=== PATIENT | female | born 1980 | race Asian ===

== ENCOUNTER 2021-01-28 17:29 | Emergency (ER) | payer BC, SELFPAY ==
[2021-01-28 17:31] VITALS: BP 114/75; PULSE 77; RESP 18; TEMP 36.1; O2SAT 95; BMI 23.0
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
--- NOTE | 2021-01-28 17:37 | EKG12_ITS ---
Test Reason : A/A Blood Pressure : / mmHG Vent. Rate : 074 BPM Atrial Rate : 074 BPM P-R Int : 184 ms QRS Dur : 088 ms QT Int : 410 ms P-R-T Axes : 071 083 047 degrees QTc Int : 455 ms Normal sinus rhythm Normal ECG Confirmed by ANDREA GILMORE, EMA ([id number]), technical editor ZANDRA REYNA ([id number]) on 01/29/2021 9:24:20 AM Referred By: DEBBI Confirmed By:EMA MENDEZ MD
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
--- NOTE | 2021-01-28 17:42 | ED.RN ---
Pt. has contusion with small laceration to forehead. glued area. RLE forearm bruising. C/O's of lower abdominal pain.
[2021-01-28 17:56] LABS: Absolute Lymphocyte Count 2.46 X10^3/uL (0.83-4.51); Absolute Neutrophil Count 5.7 X10^3/uL (2.0-7.7); Basophil# 0.03 X10^3/uL; Basophil% 0.3 % (0-1); Eosinophil# 0.05 X10^3/uL; Eosinophils% 0.6 % (0-5); Hematocrit 43.1 % (37-47); Hemoglobin 14.8 g/dL (12.0-15.0); Lymphocyte # 2.46 X10^3/ul (0.83-4.51); Lymphocyte % 28.4 % (19-41); Mean Corp Hgb Conc 34.3 g/dL (32-36); Mean Corpuscular Hgb 31.2 pg (27.0-32.0); Mean Corpuscular Volume 90.7 fL (81-99); Monocyte# 0.44 X10^3/uL; Monocyte% 5.1 % (0-10); NRBC Flagged by Analyzer 0 % (0-5); Neutrophil # 5.66 X10^3/uL (2.7-7.7); Neutrophil % 65.4 % (47-70); Platelet Count 226 K/mm3 (150-450); RBC Distribution Width CV 11.7 % (11.6-14.6); RBC Distribution Width SD 38.6 fl (35.1-43.9); Red Blood Count 4.75 M/mm3 (4.2-5.4); White Blood Count 8.7 K/mm3 (4.4-11.0)
--- NOTE | 2021-01-28 18:02 | NURSING ---
NO OLD EKGS
[2021-01-28] MEDS: 0.9% Normal Saline 1,000 ML 1000 ML IV (18:03)
[2021-01-28 18:06] LABS: International Normalized Ratio 1.1; Partial Thromboplast Time 26.8 Seconds (24.1-36.2); Prothrombin Time (Protime)PT. 13.4 SECONDS (11.7-14.9)
[2021-01-28] MEDS: Diphth,Pertuss(Acell),Tet Vac 0.5 ML Vial IM (18:19)
--- NOTE | 2021-01-28 18:22 | RAD_ITS ---
EXAM: XR RIGHT ANKLE COMPLETE, 3 OR MORE VIEWS : 1980 CLINICAL INDICATION: injury TECHNIQUE: Frontal, lateral and oblique views of the right ankle. This report was created using [employer] report generation technology. COMPARISON: None. FINDINGS: BONES/JOINTS: Unremarkable. No acute fracture. No subluxation. Normal alignment. Preservation of the joint space. No sclerotic or destructive changes observed. SOFT TISSUES: Unremarkable. No soft tissue swelling or gas. No radiopaque foreign body. RAD/Ankle min 3 Views IMPRESSION: Negative right ankle x-rays. at 1917 Reported and signed by: Home Willett MD Electronically Signed: Home Willett MD at 19:16 EDT Tel , Service support ,
[2021-01-28 18:32] LABS: Alcohol, Blood (Medical)-Serum < 3.0 mg/dL
[2021-01-28 18:37] LABS: Internal QC Validated? YES +Cl - CLEAR BKGD; Pregnancy, Serum, hCG Quali. NEGATIVE Negative
[2021-01-28 18:39] LABS: AST(SGOT) 22 U/L (15-37); Alanine Aminotransfer ALT/SGPT 20 U/L (13-56); Albumin, Serum 4.1 g/dL (3.2-5.0); Alkaline Phosphatase 73 U/L (45-117); Anion Gap 8 (5-15); BUN 14 mg/dL (7-18); BUN/Creat Ratio 20.1 RATIO (10-20); Bilirubin, Direct 0.16 mg/dL (0.00-0.30); Calcium,Total 9.2 mg/dL (8.5-10.1); Chloride 106 mmol/L (98-107); EST Glomerular Filtration Rate 99 mL/min (>60); Est Glom Filt Rate - Afr Amer 120 mL/min (>60); Estimated Creatinine Clearance 84.49 ml/min; Globulin 3.7 g/dL (2.2-4.2); Glucose 125 mg/dL (74-106); Lactic Acid 0.8 mmol/L (0.4-1.9); Lipase 155 U/L (73-393); Potassium 3.2 mmol/L (3.5-5.1); Protein, Total 7.8 g/dL (6.4-8.2); Sodium Level 138 mmol/L (136-145); Troponin-I HS 4 pg/mL (3.0-54.0)
[2021-01-28 18:43] VITALS: BP 110/77; PULSE 57; RESP 18; O2SAT 100
[2021-01-28] MEDS: 0.9% Normal Saline 1,000 ML 150 ML IV (18:47)
[2021-01-28 20:03] VITALS: BP 104/67; PULSE 78; RESP 15
[2021-01-28 20:12] LABS: Bacteria 0 SEEN /hpf (None Seen); Mucous, Urine 0 SEEN /hpf (<or=2+)
[2021-01-28 20:14] LABS: Color, Urine Yellow (Yellow); Glucose, Dipstick Normal (Normal); Ketone-Dipstick 50 mg/dl (Negative); Leukocyte Esterase-Dipstick 100 /ul (Negative); Nitrite-Dipstick Negative (Negative); Occult Blood-Urine 25 /ul (Negative); Protein-Dipstick Negative (Negative); Urine Bilirubin Dipstick Negative (Negative); Urine Clarity Clear (Clear); Urine Urobilinogen Normal (Normal)
[2021-01-28 20:23] LABS: Red Blood Cells-Urine 0-5 SEEN /hpf (0-5); Squamous Epithelial Cells - UA 0-5 SEEN /hpf (5-10); White Blood Cells 5-10 SEEN /hpf (0-5)
[2021-01-28 20:34] LABS: Amphetamine Urine VISTA NEGATIVE (<1000 ng/mL); Barbiturate Urine VISTA NEGATIVE (< 200 ng/mL); Benzodiazepine Urine VISTA NEGATIVE (< 200 ng/mL); Cocaine Urine VISTA NEGATIVE (< 300 ng/mL); Ecstacy Urine VISTA NEGATIVE (< 500 ng/mL); Methadone Urine VISTA NEGATIVE (< 300 ng/mL); PCP Urine VISTA NEGATIVE (< 25 ng/mL); THC Urine VISTA NEGATIVE (< 50 ng/mL); Vista UDS pH Range 6
[2021-01-28] MEDS: Mag Hydrox/Al Hydrox/Simeth 30 ML UDC PO (20:42)
[2021-01-28] MEDS: Pantoprazole Sodium 40 MG Tablet PO (20:42)
[2021-01-28 20:43] VITALS: BP 107/79; PULSE 83; RESP 16; O2SAT 100
== END 2021-01-28 20:54 | disposition home or self-care (01) ==
PROVIDERS: Emergency Provider Emergency Medicine; PCP Family Medicine
DX: S06.0X9A Concussion with loss of consciousness of unspecified duration, initial encounter (principal); S01.81XA Laceration without foreign body of other part of head, initial encounter; S50.811A Abrasion of right forearm, initial encounter; S30.811A Abrasion of abdominal wall, initial encounter; S30.1XXA Contusion of abdominal wall, initial encounter; S90.01XA Contusion of right ankle, initial encounter; V89.2XXA Person injured in unspecified motor-vehicle accident, traffic, initial encounter; Y93.9 Activity, unspecified; Y92.9 Unspecified place or not applicable; K29.70 Gastritis, unspecified, without bleeding
CPT/HCPCS: 12011; 70450; 71260; 72125; 73610; 74177; 80048; 80076; 80307; 81001; 82077; 83605; 83690; 84484; 84703; 85025; 85610; 85730; 90715; 93005; 96360; 96361; 99285; J7030; A4216